=== PATIENT | female | born 1945 | race Caucasian/White ===

== ENCOUNTER 2018-01-30 15:59 | Emergency (ER) | payer MEDICARE, OTHER ==
--- NOTE | 2018-01-30 16:42 | ED ---
Lower Extremity - HPI Summary HPI Summary: 72-year-old female presents with right foot injury today. States she twisted her ankle at a yard sale. She inverted the ankle. She has pain and bruising over the lateral aspect of her right foot. She has a previous tendon repair there before. She denies any numbness or tingling. she denies any knee pain. she denies any other injury. She denies any blood thinners. She has a past medical history of high blood pressure. - History of Current Complaint Chief Complaint: EDExtremityLower Stated Complaint: RT FOOT INJURY Time Seen by Provider: 01/30/18 16:33 Pain Intensity: 2 - Allergies/Home Medications Allergies/Adverse Reactions: Allergies Allergy/AdvReac Type Severity Reaction Status Date / Time Sulfa (Sulfonamide Allergy Severe Hives Verified 01/30/18 16:37 Antibiotics) PMH/Surg Hx/FS Hx/Imm Hx Endocrine/Hematology History: Denies: Hx Diabetes, Hx Thyroid Disease Cardiovascular History: Reports: Hx Hypertension Respiratory History: Reports: Hx Asthma Denies: Hx Chronic Obstructive Pulmonary Disease (COPD) GI History: Denies: Hx Ulcer - Cancer History Hx Chemotherapy: No Hx Radiation Therapy: No Infectious Disease History: No Infectious Disease History: Denies: Hx Clostridium Difficile, Hx Hepatitis, Hx Human Immunodeficiency Virus (HIV), Hx of Known/Suspected MRSA, Hx Shingles, Hx Tuberculosis, Hx Known/ Suspected VRE, Hx Known/Suspected VRSA, History Other Infectious Disease, Traveled Outside the in Last 30 Days - Family History Known Family History: Positive: Hypertension - Social History Alcohol Use: None Substance Use Type: Reports: None Hx Tobacco Use: No Smoking Status (MU): Never Smoked Tobacco Review of Systems Negative: Fever Negative: Chest Pain Negative: Shortness Of Breath Positive: Myalgia - right foot pain All Other Systems Reviewed And Are Negative: Yes Physical Exam Triage Information Reviewed: Yes Vital Signs On Initial Exam: Initial Vitals Temp Pulse Resp BP Pulse Ox 98.9 F 63 16 127/83 97 01/30/18 16:06 01/30/18 16:06 01/30/18 16:06 01/30/18 16:06 01/30/18 16:06 Vital Signs Reviewed: Yes Appearance: Positive: Well-Appearing Skin: Positive: Warm, Dry Head/Face: Positive: Normal Head/Face Inspection Eyes: Positive: Normal, Conjunctiva Clear ENT: Positive: Pharynx normal Respiratory/Lung Sounds: Positive: Clear to Auscultation, Breath Sounds Present Cardiovascular: Positive: Normal, RRR Musculoskeletal: Positive: Limited @ - right foot, Edema Right - metatarsal 5th , Other - tenderness over 5th metatarsal, ecchymosis to 5th metatarsal, good pulses, capillary refill<2secs Neurological: Positive: Normal Psychiatric: Positive: Normal Diagnostics - Vital Signs Vital Signs Temp Pulse Resp BP Pulse Ox 01/30/18 16:06 98.9 F 63 16 127/83 97 - Laboratory Lab Statement: Any lab studies that have been ordered have been reviewed, and results considered in the medical decision making process. - Radiology foot Xray Interpretation: Positive (See Comments) - IMPRESSION: FRACTURE FIFTH METATARSAL. Radiology Interpretation Completed By: Radiologist Lower Extremity Course/Dx - Course Course Of Treatment: 72-year-old female presents with right foot injury today. States she twisted her ankle at a yard sale. She inverted the ankle. She has pain and bruising over the lateral aspect of her right foot. She has a previous tendon repair there before. She denies any numbness or tingling. she denies any knee pain. she denies any other injury. She denies any blood thinners. She has a past medical history of high blood pressure. On exam tenderness over right fifth metatarsal. Ecchymosis noted. Neurovascular intact. X-ray shows fracture of 5th metatarsal. discussed options with patient and patient will feel most comfortable in a cam boot and using a cane. will have follow up with ortho. patient understand and agrees with plan. - Diagnoses Differential Diagnosis/HQI/PQRI: Positive: Fracture (Closed), Sprain, Strain Provider Diagnoses: Fracture of 5th metatarsal Discharge - Sign-Out/Discharge Documenting (check all that apply): Patient Departure - Discharge Plan Condition: Good Disposition: HOME Patient Education Materials: Foot Fracture in Adults (ED) Referrals: Raji CARRILLO,Venancio Ojeda [Primary Care Provider] - Theresa Ybarra MD [Medical Doctor] - Additional Instructions: keep boot on area use cane to get around Call ortho office to set up appointment for follow up Use tyenlol or ibuprofen for pain every 6 hours and use narcotic for breakthrough pain Ice, elevate Return to ED if develop any new or worsening symptoms - Billing Disposition and Condition Condition: GOOD Disposition: Home
--- NOTE | 2018-01-30 16:54 | RAD ---
INDICATION: Right foot injury COMPARISON: None TECHNIQUE: AP, lateral, and oblique views were obtained. FINDINGS: There is a transverse, mildly distracted and intra-articular fracture involving the base of the fifth metatarsal. There are no other fractures. The remaining joint spaces are maintained. There is lateral soft tissue swelling. IMPRESSION: FRACTURE FIFTH METATARSAL.
[2018-01-30 18:00] VITALS: BP 126/80
== END 2018-01-30 17:55 | disposition home or self-care (01) ==
LOC: ED 15:59
DX: S92.351A Displaced fracture of fifth metatarsal bone, right foot, initial encounter for closed fracture (principal); X50.1XXA Overexertion from prolonged static or awkward postures, initial encounter; Y93.89 Activity, other specified; Y92.9 Unspecified place or not applicable; Z88.2 Allergy status to sulfonamides; Z82.49 Family history of ischemic heart disease and other diseases of the circulatory system
CPT/HCPCS: 99282

== ENCOUNTER 2018-10-16 16:57 | Emergency (ER) | payer MEDICARE, OTHER ==
[2018-10-16] MEDS ORDERED: Albuterol/Ipratropium NEB.SOL* Albuterol 2.5 MG/Ipratropium 0.5 MG 3 ML INH ONE (18:41)
[2018-10-16] MEDS ORDERED: methylPREDNISolone 125 MG* 2 ML VIAL IV ONE (18:41)
[2018-10-16] MEDS ORDERED: guaiFENesin/CODIEN 100MG-10MG* 5 ML UDC PO ONE (18:43)
--- NOTE | 2018-10-16 18:54 | ED ---
Respiratory - HPI Summary HPI Summary: 72-year-old female presents with shortness breath for the past couple days. She states that has been having coughing spells where she can not catch her breath. She denies any chest pain. She states she was seen at her primary 2 days ago and started on Augmentin. She states she has not had to use inhaler in years until this illness. States she just returned from [place] a couple days ago. Denies any pain or any increased swelling to her legs. she is not a smoker. Denies any history of pneumonia. No one else is sick. - History of Current Complaint Chief Complaint: EDShortnessOfBreath Stated Complaint: DIFFICULTY BREATHING/COUGH PER PT Time Seen by Provider: 10/16/18 18:35 Pain Intensity: 6 - Allergy/Home Medications Allergies/Adverse Reactions: Allergies Allergy/AdvReac Type Severity Reaction Status Date / Time Sulfa (Sulfonamide Allergy Severe Hives Verified 10/16/18 17:08 Antibiotics) Home Medications: Home Medications Amoxicillin/Clavulanate TAB* [Augmentin TAB 875*] 1 tab PO BID 10/16/18 [ History Confirmed 10/16/18] Fluticasone NASAL SPRAY 50MCG* [Flonase NASAL SPRAY 50MCG*] 1 spray INTRANASAL DAILY 10/16/18 [History Confirmed 10/16/18] Levothyroxine TAB* [Synthroid TAB*] 50 mcg PO DAILY 10/16/18 [History Confirmed 10/16/18] PMH/Surg Hx/FS Hx/Imm Hx Endocrine/Hematology History: Denies: Hx Diabetes, Hx Thyroid Disease Cardiovascular History: Reports: Hx Hypertension Respiratory History: Reports: Hx Asthma Denies: Hx Chronic Obstructive Pulmonary Disease (COPD) GI History: Denies: Hx Ulcer - Cancer History Hx Chemotherapy: No Hx Radiation Therapy: No Infectious Disease History: No Infectious Disease History: Denies: Hx Clostridium Difficile, Hx Hepatitis, Hx Human Immunodeficiency Virus (HIV), Hx of Known/Suspected MRSA, Hx Shingles, Hx Tuberculosis, Hx Known/ Suspected VRE, Hx Known/Suspected VRSA, History Other Infectious Disease, Traveled Outside the [place] in Last 30 Days - Family History Known Family History: Positive: Hypertension - Social History Alcohol Use: None Substance Use Type: Reports: None Hx Tobacco Use: No Smoking Status (MU): Never Smoked Tobacco Review of Systems Negative: Fever Negative: Chest Pain Positive: Shortness Of Breath, Cough Negative: Abdominal Pain All Other Systems Reviewed And Are Negative: Yes Physical Exam Triage Information Reviewed: Yes Vital Signs On Initial Exam: Initial Vitals Temp Pulse Resp BP Pulse Ox 98.1 F 67 18 159/95 97 10/16/18 17:08 10/16/18 17:08 10/16/18 17:08 10/16/18 17:08 10/16/18 17:08 Vital Signs Reviewed: Yes Appearance: Positive: Well-Appearing Skin: Positive: Warm, Dry Head/Face: Positive: Normal Head/Face Inspection Eyes: Positive: Normal, EOMI, BRY, Conjunctiva Clear ENT: Positive: Normal ENT inspection, Pharynx normal, TMs normal Neck: Positive: Supple, Nontender, No Lymphadenopathy Respiratory/Lung Sounds: Positive: Breath Sounds Present, Rhonchi Cardiovascular: Positive: Normal, RRR Abdomen Description: Positive: Nontender, Soft Bowel Sounds: Positive: Present Musculoskeletal: Positive: Normal Neurological: Positive: Normal Psychiatric: Positive: Normal Diagnostics - Vital Signs Vital Signs Temp Pulse Resp BP Pulse Ox 10/16/18 17:08 98.1 F 67 18 159/95 97 - Laboratory Result Diagrams: 10/16/18 19:13 10/16/18 19:13 Lab Statement: Any lab studies that have been ordered have been reviewed, and results considered in the medical decision making process. - EKG No standard instances Cardiac Rate: Bradycardia EKG Rhythm: Sinus Bradycardia Summary of EKG Findings: sinus bradycardia Re-Evaluation - Re-Evaluation First Eval Re-Evaluation Time: 19:45 Change: Improved Comment: lungs improved Second Eval Re-Evaluation Time: 20:53 Change: Improved Comment: lungs CTA Disposition - Course Course Of Treatment: 72-year-old female presents with shortness breath for the past couple days. She states that has been having coughing spells where she can not catch her breath. She denies any chest pain. She states she was seen at her primary 2 days ago and started on Augmentin. She states she has not had to use inhaler in years until this illness. States she just returned from [place] a couple days ago. Denies any pain or any increased swelling to her legs. she is not a smoker. Denies any history of pneumonia. No one else is sick. On exam wheezing and rhonchi noted. Abdomen soft nontender. wbc normal. chest xray read by me as normal. gave mg, steriod and breathing treatment and lungs CTA. will discharge with steriod and robutissin. patient understand and agrees with plan. - Differential Dx - Cardiopulmonary Differential Diagnoses - Cardiopulmonary: Asthma, Bronchitis, Lower Resp Infection - Diagnoses Provider Diagnoses: Asthma, Bronchitis Discharge - Sign-Out/Discharge Documenting (check all that apply): Patient Departure Patient Received Moderate/Deep Sedation with Procedure: No - Discharge Plan Condition: Good Disposition: HOME Prescriptions: guaiFENesin/CODIEN 100MG-10MG* [Robitussin AC 100Mg-10Mg*] 5 ml PO Q46H PRN # 100 ml MDD 20ml PRN Reason: Cough predniSONE TAB* [Deltasone TAB*] 50 mg PO DAILY #4 tab Patient Education Materials: Acute Bronchitis (ED) Referrals: Raji CARRILLO,Venancio Ojeda [Primary Care Provider] - Additional Instructions: Take steroid once a day for 4 more days use inhaler every 6 hours as needed for shortness of breath Take cough medication 5ml (1 teaspoon) every 6 hours as needed cough Take Tylenol for pain every 6 hours continue antibiotic as prescribed Follow up with primary within 5 days Return to ED if develop severe shortness of breath, worsening chest pain, or any new or worsening symptoms - Billing Disposition and Condition Condition: GOOD Disposition: Home
[2018-10-16 19:22] LABS: ABS Basophils 0 10^3/ul (0-0.2); ABS Eosinophils 0.1 10^3/ul (0-0.6); ABS Lymphocytes 2.1 10^3/ul (1.0-4.8); ABS Monocytes 0.6 10^3/ul (0-0.8); ABS Neutrophils 4.8 10^3/ul (1.5-7.7); ABS Nucleated RBC 0 10^3/ul; Eosinophil % 1.9 %; Hematocrit 42 % (33-41); Lymphocyte % 27.8 %; Mean Corpuscular HGB Conc 33 g/dL (31-36); Mean Corpuscular Hemoglobin 29 pg (27-31); Mean Corpuscular Volume 87 fL (80-97); Nucleated Red Blood Cells % 0; Platelet Count 284 10^3/uL (150-450); Red Blood Count 4.86 10^6 /uL (3.70-4.87); Red Cell Distribution Width 14 % (10.5-15); White Blood Count 7.7 10^3/uL (3.5-10.8)
[2018-10-16 19:30] LABS: INR 0.9 (0.77-1.02)
[2018-10-16 19:41] LABS: Albumin/Globulin Ratio 1.6 (1-3); BUN/Creatinine Ratio 14.3 (8-20); C Reactive Protein 10.17 mg/L (<8.01); Calcium 9.4 mg/dL (8.6-10.3); EGFR African American 80.2 (>60); EGFR Non-African American 66.3 (>60); Globulin 2.5 g/dL (2-4); Magnesium 2.3 mg/dL (1.9-2.7); Potassium 3.4 mmol/L (3.5-5.0); Total Bilirubin 0.3 mg/dL (0.2-1.0); Total Protein 6.5 g/dL (6.4-8.9)
[2018-10-16 19:42] LABS: Troponin I 0.01 ng/mL (<0.04)
[2018-10-16] MEDS ORDERED: Magnesium Sulfate 2 GM IV* 2 GM/50 ML BAG IVPB ONE (19:45)
[2018-10-16] MEDS ORDERED: Albuterol HFA INHALER* 8 gm MDI INH ONE (20:52)
[2018-10-16 21:07] VITALS: BP 127/79
== END 2018-10-16 21:10 | disposition home or self-care (01) ==
LOC: ED 16:57
DX: J44.1 Chronic obstructive pulmonary disease with (acute) exacerbation (principal); J45.901 Unspecified asthma with (acute) exacerbation; R94.31 Abnormal electrocardiogram [ECG] [EKG]; I10 Essential (primary) hypertension; Z79.51 Long term (current) use of inhaled steroids; Z88.2 Allergy status to sulfonamides
CPT/HCPCS: 36415; 71046; 80053; 83605; 83735; 83880; 84484; 85025; 85610; 86140; 87040; 93005; 96365; 96375; 99284; A9270-GY; J2930; J3475

== ENCOUNTER 2018-10-26 16:07 | Emergency (ER) | payer MEDICARE, OTHER ==
--- NOTE | 2018-10-26 16:13 | UC ---
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 She tells me that she was out for a walk with her and about a 1/4th mile into the walk pt began to have chest pain, shortness of breath, and felt lightheaded. They turned around and went home. Pt sat down and took an aspirin and felt better within 20-30minutes. She then decided to come to to be checked out. She mentions that she had an episode similar to this while on vacation in [place] about 4 months ago and went to the ER there. She tells me a stress test was done and she saw a planning associate outpatient and everything was deemed normal. About a week ago she did go to the ER here in [place] for what sounds like bronchitis/asthma exacerbation. Currently she has no symptoms and is feeling well. She is unsure of her family history. Currently denies fever, dizziness, headache, SOB, chest pain, abdominal pain, n/v. - History of Current Complaint Stated Complaint: CHEST PAIN Time Seen by Provider: 10/26/18 16:12 Hx Obtained From: Patient Onset/Duration: Sudden Onset Initial Severity: Moderate Current Severity: None - Allergy/Home Medications Allergies/Adverse Reactions: Allergies Allergy/AdvReac Type Severity Reaction Status Date / Time Sulfa (Sulfonamide Allergy Severe Hives Verified 10/26/18 16:29 Antibiotics) PMH/Surg Hx/FS Hx/Imm Hx Endocrine History: Hypothyroidism Cardiovascular History: Hypertension Respiratory History: Asthma - Surgical History Surgical History: None - Family History Known Family History: Positive: Hypertension - Social History Occupation: Retired Lives: With Family Alcohol Use: None Substance Use Type: None Smoking Status (MU): Never Smoked Tobacco - Immunization History Most Recent Influenza Vaccination: 2013 Most Recent Pneumonia Vaccination: 2012 Review of Systems All Other Systems Reviewed And Are Negative: Yes Constitutional: Positive: Negative Skin: Positive: Negative Respiratory: Positive: Shortness Of Breath Cardiovascular: Positive: Chest Pain Gastrointestinal: Positive: Negative Genitourinary: Positive: Negative Neurovascular: Positive: Negative Neurological: Positive: Negative Psychological: Positive: Negative Physical Exam - Summary Physical Exam Summary: GENERAL: NAD. WDWN. No pain distress. SKIN: No rashes, sores, lesions, or open wounds. NECK: Supple. Nontender. No lymphadenopathy. CHEST: CTAB. No r/r/w. No accessory muscle use. Breathing comfortably and in no distress. CV: RRR. Without m/r/g. Pulses intact. Cap refill <2seconds ABDOMEN: Soft. NTTP. No distention or guarding. No CVA tenderness. Bowel sounds present NEURO: Alert. PSYCH: Age appropriate behavior. Triage Information Reviewed: Yes Vital Signs: Vital Signs: Temp Pulse Resp BP Pulse Ox 98.7 F 67 17 131/89 97 10/26/18 16:12 10/26/18 16:12 10/26/18 16:12 10/26/18 16:12 10/26/18 16:12 Vital Signs Reviewed: Yes - Assessment/Plan Course Of Treatment: EKbpm NSR No STEMI as read by Dr. Sharp. I had a long discussion with the pt that her symptoms are concerning as that this is a second episode within a few months of FERRIS and chest pain with exertion. I strongly recommended that she be further evaluated in the ED for her symptoms, but she stated that she would think about it and discuss it with her . I made her aware the her symptoms could be indicative of ischemia, CAD, and discussed risks of VA with her - she continued to decline. Given this, I will refer her to outpatient cardiology, which she is more receptive to. She did agree to go to the ED if her symptoms returned or happened again. - Clinical Impression Provider Diagnosis: Chest pain on exertion Discharge - Sign-Out/Discharge Documenting (check all that apply): Patient Departure All imaging exams completed and their final reports reviewed: No Studies - Discharge Plan Condition: Stable Disposition: HOME-RECOMMEND TO ED Referrals: Raji CARRILLO,Venancio Ojeda [Primary Care Provider] - Nikko Donohue MD [Medical Doctor] - As Soon As Possible Additional Instructions: I strongly recommend that you go to the ER for further evaluation of your chest pain - Billing Disposition and Condition Condition: STABLE Disposition: Home-Recommend to ED - Attestation Statements Provider Attestation: Pt not examined by me. I was available for consult.
[2018-10-26 16:18] VITALS: BP 131/89
== END 2018-10-26 16:55 | disposition home health service (06) ==
LOC: UCEAST 16:07
DX: R07.89 Other chest pain (principal); E03.9 Hypothyroidism, unspecified; I10 Essential (primary) hypertension; J45.909 Unspecified asthma, uncomplicated; Z88.2 Allergy status to sulfonamides
CPT/HCPCS: 93005; 99212; G0463